=== PATIENT | male | born 1965 | race Caucasian/White ===

== ENCOUNTER 2016-07-28 18:03 | Emergency (ER) | payer OTHER ==
[~2016-07-28] VITALS: Ht 180.3 cm; Wt 97.5 kg
[~2016-07-28 18:03] MED LIST: 'PARAFON FORTE500 M1 PO; AUGMENTIN 875 M1 TAB PO; AUGMENTIN 875875 MG PO; BACTRIM DS 8001 TA1 PO; CIPRODEX 0.3%-7.5 ML OT; HYDROCODONE BIT1 T11 PO; INDOCIN25 MG; KEFLEX500 MG PO; LAMICTAL CD5 MG PO; MIRTAZAPINE30 MG PO; MOTRIN800 MG PO; NAPROSYN500 MG PO; NORCO 325 MG-51 TAB PO; OMNICEF300 MG PO; SIMVASTATIN20 MG PO; TRAMADOL HCL50 MG PO; VICODIN 500 MG-1 TAB PO
[2016-07-28 18:06] VITALS: BP 153/104
[2016-07-28] MEDS ORDERED: HYDROCODONE BIT1 T11 PO (19:23)
== END 2016-07-28 18:18 | disposition home or self-care (01) ==
LOC: ED 18:03
DX: S62.396A Other fracture of fifth metacarpal bone, right hand, initial encounter for closed fracture (principal); Z90.89 Acquired absence of other organs; Z88.5 Allergy status to narcotic agent; W22.8XXA Striking against or struck by other objects, initial encounter; Y93.89 Activity, other specified; Y92.89 Other specified places as the place of occurrence of the external cause; Y99.9 Unspecified external cause status

== ENCOUNTER → 2016-08-13 | Outpatient (CLI) | payer OTHER | END | disposition home or self-care (01) | LOC: ORTHO 00:41 | DX: S62.306D Unspecified fracture of fifth metacarpal bone, right hand, subsequent encounter for fracture with routine healing (principal); X58.XXXD Exposure to other specified factors, subsequent encounter ==

== ENCOUNTER 2017-09-09 17:32 | Emergency (ER) | payer OTHER ==
[~2017-09-09] VITALS: Ht 180.3 cm; Wt 113.4 kg
[2017-09-09 17:32] VITALS: BP 138/94
[2017-09-09] MEDS ORDERED: NAPROSYN500 MG PO (17:56)
[2017-09-09] MEDS ORDERED: KEFLEX500 M1 PO (17:56)
== END 2017-09-09 19:22 | disposition home or self-care (01) ==
LOC: ED 17:32
DX: S60.453A Superficial foreign body of left middle finger, initial encounter (principal); R03.0 Elevated blood-pressure reading, without diagnosis of hypertension; Z90.89 Acquired absence of other organs; Z88.5 Allergy status to narcotic agent; X58.XXXA Exposure to other specified factors, initial encounter; Y93.89 Activity, other specified; Y92.89 Other specified places as the place of occurrence of the external cause; Y99.9 Unspecified external cause status

== ENCOUNTER 2018-04-10 11:06 | Inpatient (IN) | payer OTHER ==
[2018-04-10] VITALS (16 sets, daily range): BP systolic 103–156; BP diastolic 61–97
[~2018-04-10] VITALS: Ht 180.3 cm; Wt 96.7 kg
--- NOTE | ~2018-04-10 | EKG ---
[place], [place] ELECTROCARDIOGRAM REPORT NAME: SHERRIE GARCIA JR UNIT #: [id number] ROOM: 416 DOCTOR: LUZ MARIA DRAFT REPORT BIRTHDATE: [birth year] [facility] Test Date: 2018-04-10 Test Time: 11:08:27 Pat Name: SHERRIE GARCIA Department: Room: 416 Gender: M Immunology Specialist: Nova Kelly : 1965 Requested By: PRATEEK MCCURDY Order Number: [id number] Reading MD: Pino Soliz MD Measurements Intervals [place] Rate: 133 P: [place]: QRS: 52 QRSD: 137 T: -79 QT: 349 QTc: 520 Interpretive Statements Atrial flutter with 2:1 AV block IVCD, consider atypical RBBB Abnormal T, consider ischemia, diffuse leads ST elevation, consider anterior injury No previous ECG available for comparison Electronically Signed On 04-12-2018 8:19:36 PST by Pino Soliz MD CM:EKGRPT:ELECTROCARDIOGRAM REPORT [id number] PRATEEK LOERA DRAFT REPORT PRATEEK MCCURDY M.D.
--- NOTE | ~2018-04-10 | PR ---
[place], [place] PROGRESS NOTE [id number] UNIT #: [id number] ROOM: 416 DOCTOR: MICHELE HODGES MD BIRTHDATE: [birth year] DOS: 04/13/2018 SUBJECTIVE: The patient was admitted with atrial flutter with rapid ventricular rate and he is on a beta aniyah and the heart rate is under much better control. He has no palpitations, breathing difficulty, chest pain or dizziness. He walked around without any symptoms. The patient is anticoagulated as well now. PHYSICAL EXAMINATION: GENERAL: The patient is pleasant, alert, oriented. He is very comfortable. He is not tachypneic. Not dizzy. VITAL SIGNS: Temperature is normal, pulse is 104 irregular, blood pressure 117/85. NECK: Normal JVP. RESPIRATORY: Breath sounds are diminished. Some crackles because of the patient's COPD as well as smoking. HEART: Monitor shows atrial flutter with a heart rate around 100-110 beats per minute. IMPRESSION: 1. Newly diagnosed atrial flutter. 2. There is no evidence of cardiac decompensation. 3. Smoking. 4. Chronic obstructive pulmonary disease. RECOMMENDATIONS: The patient was to have electrical cardioversion done today and because of scheduling conflict it could not be done. The patient has electrical ARTHUR and electrical cardioversion scheduled for tomorrow and the patient can be discharged home and the procedures will be done as an outpatient. The patient should go home on anticoagulation as well as current dose of beta aniyah. MICHELE HODGES MD CM:PNTRANS [id number] MICHELE HODGES MD 04/24/18 1023 interface
--- NOTE | ~2018-04-10 | CON ---
[place], [place] REPORT OF CONSULTATION NAME: SHERRIE GARCIA JR UNIT #: [id number] ROOM: 415 DOCTOR: IDALMIS MARIEZULEYKA BIRTHDATE: [birth year] DOS: 04/11/2018 REASON FOR ADMISSION: New onset atrial flutter. HISTORY OF PRESENT ILLNESS: The patient is a 52-year-old gentleman, brought from the [place], evaluation of an EKG showing new onset atrial fibrillation. The patient was significantly diaphoretic and dizzy spells and was in rapid ventricular response also. The patient was started on Cardizem drip. The patient's family sees Dr. Soliz, hence Dr. Soliz was consulted. Echocardiogram has been ordered. He denies any chest discomfort. Rate is well-controlled on a Cardizem drip at 10 mcg. No history of previous cardiac issues. The patient is a smoker. The patient also has history of hypertension. Right now, he denies any angina. Cardiac enzymes have all been negative. PAST MEDICAL HISTORY: Hypertension, tobacco abuse. PAST SURGICAL HISTORY: Hernia repair and vasectomy. SOCIAL HISTORY: He consumes alcohol occasionally. He uses marijuana and currently smokes 1 pack per day of cigarettes. FAMILY HISTORY: Atrial fibrillation in the mother. ALLERGIES: CODEINE. HOME MEDICATIONS: Simvastatin, amitriptyline and Lamictal. REVIEW OF SYSTEMS: CONSTITUTIONAL: No fever, no chills. HEENT: No visual disturbance or hearing problems. CARDIOVASCULAR: As per HPI. RESPIRATORY: Complains of coughing and shortness of breath. GASTROINTESTINAL: No nausea, no vomiting. GENITOURINARY: No dysuria. PHYSICAL EXAMINATION: VITAL SIGNS: Blood pressure is 120/70, heart rate is controlled on 10 mcg of Cardizem. HEENT: Unremarkable. NECK: Supple, no JVD. LUNGS: Diminished breath sounds. HEART: Sounds are irregularly irregular. ABDOMEN: Soft, nontender. NEUROLOGICAL: Stable. EKG shows atrial flutter with variable rate. LABORATORY DATA: Sodium 140, potassium 4.5, creatinine is 0.9. Troponins have all been negative. INR is 1. Hemoglobin 16.5, hematocrit 49.9. Chest x-ray is normal. IMPRESSION: [place], [place] REPORT OF CONSULTATION NAME: SHERRIE GARCIA JR UNIT #: [id number] ROOM: [facility] DOCTOR: ZULEYKA RAYGOZA MD BIRTHDATE: [birth year] 1. New onset of atrial flutter. 2. History of mild hypertension. 3. Tachyarrhythmia. 4. History of tobacco abuse and marijuana abuse. RECOMMENDATIONS: As ordered. Start the patient on beta blockers and anticoagulation with Eliquis. I will review the echocardiogram. If the patient does not convert, probably consideration should be given for either a ARTHUR cardioversion or start the patient on amiodarone drip. SOL score is not significantly elevated, except for tobacco and mild hypertension. Importance of tobacco cessation and marijuana cessation discussed with the patient in detail and we will closely follow up with you. Thank you for this interesting consultation. ZULEYKA RAYGOZA MD CM:CONSTR:REPORT OF CONSULTATION 0739 04/11/18 1142 interface
--- NOTE | ~2018-04-10 | EKG ---
[place], [place] ELECTROCARDIOGRAM REPORT NAME: SHERRIE GARCIA JR UNIT #: [id number] ROOM: 416 DOCTOR: LUZ MARIA DRAFT REPORT BIRTHDATE: [birth year] [facility] Test Date: 2018-04-10 Test Time: 16:04:27 Pat Name: SHERRIE GARCIA Department: Room: 416 Gender: M Fuel Manager: Nova Kelly : 1965 Requested By: PRATEEK MCCURDY Order Number: [id number] Reading MD: Pino Soliz MD Measurements Intervals [place] Rate: 128 P: [place]: QRS: 46 QRSD: 142 T: -84 QT: 347 QTc: 507 Interpretive Statements Atrial fibrillation IVCD, consider atypical RBBB No previous ECG available for comparison Electronically Signed On 04-12-2018 8:19:51 PST by Pino Soliz MD CM:EKGRPT:ELECTROCARDIOGRAM REPORT [id number] 0819 PRATEEK LOERA DRAFT REPORT PRATEEK MCCURDY M.D.
--- NOTE | ~2018-04-10 | PR ---
[place], [place] PROGRESS NOTE NAME: SHERRIE GARCIA JR [facility] #: [id number] UNIT #: [id number] ROOM: 416 DOCTOR: MICHELE HODGES MD BIRTHDATE: [birth year] DOS: 04/12/2018 SUBJECTIVE: This patient was seen by Dr. Hilton on my behalf. The patient's diagnosis was atrial flutter with rapid ventricular rate. He had been on Cardizem drip and now is on metoprolol tartrate 50 mg b.i.d. He had some lightheaded and dizzy spells many times since September of last year and no obvious reason was identified. He had gone to his physician [place] [facility] and found his heart rate to be fast and irregular, and he was sent to the Emergency Department due to a classic atrial flutter with rapid ventricular rate, was diagnosed, the rate is now slower. He does not have any chest pain or breathing difficulty, palpitations, no loss of consciousness, and no neurological symptoms. MEDICATIONS: Currently, he is on amitriptyline 100 mg at bedtime, apixaban 5 mg b.i.d. which was started yesterday, atorvastatin 40 daily, Lamictal 200 mg at night, metoprolol tartrate 50 mg b.i.d., and nicotine patch 21 mg daily. PHYSICAL EXAMINATION: GENERAL: The patient is very pleasant, alert, comfortable. VITAL SIGNS: Pulse is irregular at 112 beats per minute, blood pressure 110/76. NECK: JVP is normal. No bruit in the neck. HEART: There is no cardiomegaly. Murmurs are present. EXTREMITIES: There is no edema of the lower extremity. RESPIRATORY: Breath sounds are mildly diminished with some adventitious sounds. LABORATORY DATA: Monitor shows atrial flutter with somewhat fast heart rate. IMPRESSION: 1. This patient has persistent atrial flutter. The patient's lightheaded and dizzy spells may be due to a rapid ventricular rate. 2. There is no evidence of cardiac decompensation. RECOMMENDATIONS: I think the best approach is to perform a transesophageal echocardiogram and if no thrombus is identified in the left atrium and left atrial appendage then attempt electrical cardioversion. I suspect this patient has either persistent or on and off atrial flutter and therefore anti-arrhythmic drug will be started if no thrombus is identified in the left ventricle. I discussed the procedure with him and pointed out the risks and the benefits. [place], [place] PROGRESS NOTE NAME: GARCIA JRSHERRIE Antonina UNIT #: [id number] ROOM: [facility] DOCTOR: MICHELE HODGES MD BIRTHDATE: [birth year] MICHELE HODGES MD CM:PNTRANS [id number] MICHELE HODGES MD 04/13/18 0239 interface
--- NOTE | ~2018-04-10 | EKG ---
[place], [place] ELECTROCARDIOGRAM REPORT NAME: SHERRIE GARCIA JR UNIT #: [id number] ROOM: 416 DOCTOR: LUZ MARIA DRAFT REPORT BIRTHDATE: [birth year] [facility] Test Date: 2018-04-10 Test Time: 13:48:36 Pat Name: SHERRIE GARCIA Department: Room: 416 Gender: M Steel Erector: Nova Kelly : 1965 Requested By: PRATEEK MCCURDY Order Number: [id number] Reading MD: Pino Soliz MD Measurements Intervals [place] Rate: 132 P: [place]: QRS: 58 QRSD: 131 T: -69 QT: 333 QTc: 494 Interpretive Statements Atrial flutter IVCD, consider atypical RBBB Nonspecific T abnormalities, lateral leads Borderline ST elevation, anterior leads No previous ECG available for comparison Electronically Signed On 04-12-2018 8:19:43 PST by Pino Soliz MD CM:EKGRPT:ELECTROCARDIOGRAM REPORT [id number] 0819 PRATEEK LOERA DRAFT REPORT PRATEEK MCCURDY M.D.
[~2018-04-10 11:06] MED LIST changes: +KEFLEX500 M1 PO
[2018-04-10 11:23] LABS: BASO # 0.1 10*3/uL (0.0-0.1); EOS # 0.2 10*3/uL (0.0-0.4); EOS % 1.3 % (1.0-4.0); HEMATOCRIT 49.9 % (42.0-52.0); HEMOGLOBIN 16.5 g/dl (14.0-18.0); LYMPH # 2.5 10*3/uL (1.3-4.4); LYMPH % 20.6 % (27.0-41.0); MEAN CELL VOLUME 91.6 fl (80.0-94.0); MEAN CORPUSCULAR HGB 30.3 pg (27.0-31.0); MEAN CORPUSCULAR HGB CONC 33.1 g/dl (33.0-37.0); MEAN PLATELET VOLUME 10.6 fl (9.6-12.3); MONO # 0.8 10*3/uL (0.1-1.0); MONO % 6.3 % (3.0-9.0); NEUT # 8.4 10*3/uL (2.3-7.9); NEUT % 69.7 % (47.0-73.0); PLATELET COUNT AUTOMATED 172 10*3/uL (130-400); RED BLOOD COUNT 5.45 10*6/uL (4.50-5.90); RED CELL DISTRI WIDTH 13.1 % (0-14.5)
[2018-04-10 11:34] LABS: ACT PARTIAL THROMBO TIME 24.7 SECONDS (20.8-31.5)
[2018-04-10 11:39] LABS: ALBUMIN 3.9 gm/dl (3.1-4.5); ALKALINE PHOSPHATASE 87 U/L (45-117); BUN 11 mg/dl (7-24); CHLORIDE 106 mmol/L (98-107); CREATININE 0.99 mg/dL (0.70-1.30); POTASSIUM 4.5 mmol/L (3.5-5.1); SGOT/AST 24 IU/L (3-35); SGPT/ALT 39 U/L (12-78); SODIUM 140 mmol/L (136-145); TOTAL PROTEIN 8.3 gm/dL (6.4-8.2)
[2018-04-10 11:43] LABS: TROPONIN I < 0.015 ng/ml (<0.045)
[2018-04-10 13:24] LABS: BILIRUBIN NEGATIVE (NEGATIVE); BLOOD NEGATIVE (NEGATIVE); CLARITY CLEAR (CLEAR); COLOR YELLOW (YELLOW); GLUCOSE NEGATIVE (NEGATIVE); KETONE NEGATIVE (NEGATIVE); LEUKO ESTERASE TRACE (NEGATIVE); NITRITE NEGATIVE (NEGATIVE); PH 7.5 (5.0-9.0); UROBILINOGEN 0.2 E.U./dl (0.2-1.0)
[2018-04-10 13:45] LABS: RBC 0-2 rbc/hpf (0-2)
[2018-04-10] MEDS ORDERED: AMITRIPTYLINE100 M1 PO (18:56)
[2018-04-11] VITALS: BP 134/79
[2018-04-11 06:07] LABS: ALBUMIN 3.7 gm/dl (3.1-4.5); ALKALINE PHOSPHATASE 89 U/L (45-117); BUN 11 mg/dl (7-24); CHLORIDE 104 mmol/L (98-107); CHOLESTEROL 171 mg/dL (<200); CREATININE 0.93 mg/dL (0.70-1.30); FREE T4 0.89 ng/dl (0.76-1.46); HDL CHOLESTEROL 25 mg/dl (40-60); POTASSIUM 4.2 mmol/L (3.5-5.1); SGOT/AST 23 IU/L (3-35); SGPT/ALT 36 U/L (12-78); SODIUM 140 mmol/L (136-145); TOTAL PROTEIN 7.7 gm/dL (6.4-8.2); TRIGLYCERIDES 411 mg/dl (<150)
[2018-04-11 06:19] LABS: BASO # 0.1 10*3/uL (0.0-0.1); EOS # 0.1 10*3/uL (0.0-0.4); EOS % 1.1 % (1.0-4.0); HEMATOCRIT 49.4 % (42.0-52.0); HEMOGLOBIN 16.3 g/dl (14.0-18.0); LYMPH # 1.7 10*3/uL (1.3-4.4); LYMPH % 19.3 % (27.0-41.0); MEAN CELL VOLUME 92.7 fl (80.0-94.0); MEAN CORPUSCULAR HGB 30.6 pg (27.0-31.0); MEAN PLATELET VOLUME 10.9 fl (9.6-12.3); MONO # 0.6 10*3/uL (0.1-1.0); NEUT # 6.2 10*3/uL (2.3-7.9); NEUT % 70.4 % (47.0-73.0); PLATELET COUNT AUTOMATED 157 10*3/uL (130-400); RED BLOOD COUNT 5.33 10*6/uL (4.50-5.90); RED CELL DISTRI WIDTH 13.3 % (0-14.5); WHITE BLOOD COUNT 8.8 10*3/uL (4.8-10.8)
[2018-04-11 07:37] LABS: VITAMIN D, 25-HYDROXY 11.1 ng/mL (30-100)
[2018-04-11 08:00] VITALS: BP 123/62; BP 142/78
[2018-04-11 12:00] VITALS: BP 117/71
[2018-04-11 16:00] VITALS: BP 123/71
[2018-04-11] MEDS ORDERED: LAMICTAL200 MG PO (18:05)
[2018-04-11 20:00] VITALS: BP 104/82
[2018-04-12] VITALS: BP 113/73
[2018-04-12 05:56] LABS: BUN 15 mg/dl (7-24); CHLORIDE 105 mmol/L (98-107); CREATININE 1.04 mg/dL (0.70-1.30); POTASSIUM 4.2 mmol/L (3.5-5.1); SODIUM 139 mmol/L (136-145)
[2018-04-12 06:03] LABS: BASO # 0.1 10*3/uL (0.0-0.1); BASO % 1.1 % (0.0-1.0); EOS # 0.1 10*3/uL (0.0-0.4); EOS % 1.2 % (1.0-4.0); HEMATOCRIT 49.2 % (42.0-52.0); HEMOGLOBIN 16.2 g/dl (14.0-18.0); LYMPH # 1.9 10*3/uL (1.3-4.4); MEAN CELL VOLUME 92.7 fl (80.0-94.0); MEAN CORPUSCULAR HGB 30.5 pg (27.0-31.0); MEAN CORPUSCULAR HGB CONC 32.9 g/dl (33.0-37.0); MONO % 11.9 % (3.0-9.0); NEUT # 5.1 10*3/uL (2.3-7.9); NEUT % 61.6 % (47.0-73.0); PLATELET COUNT AUTOMATED 157 10*3/uL (130-400); RED BLOOD COUNT 5.31 10*6/uL (4.50-5.90); RED CELL DISTRI WIDTH 13.3 % (0-14.5); WHITE BLOOD COUNT 8.2 10*3/uL (4.8-10.8)
[2018-04-12 08:00] VITALS: BP 118/72
[2018-04-12 12:00] VITALS: BP 110/76
[2018-04-12 16:00] VITALS: BP 130/78
[2018-04-12 20:00] VITALS: BP 117/85
[2018-04-13] VITALS: BP 95/63
[2018-04-13 06:11] LABS: BASO # 0.1 10*3/uL (0.0-0.1); BASO % 0.6 % (0.0-1.0); EOS # 0.1 10*3/uL (0.0-0.4); EOS % 1.8 % (1.0-4.0); HEMATOCRIT 48.6 % (42.0-52.0); HEMOGLOBIN 16.1 g/dl (14.0-18.0); LYMPH # 2.1 10*3/uL (1.3-4.4); LYMPH % 26.5 % (27.0-41.0); MEAN CELL VOLUME 92.2 fl (80.0-94.0); MEAN CORPUSCULAR HGB 30.6 pg (27.0-31.0); MEAN CORPUSCULAR HGB CONC 33.1 g/dl (33.0-37.0); MEAN PLATELET VOLUME 10.9 fl (9.6-12.3); MONO # 1.1 10*3/uL (0.1-1.0); MONO % 13.8 % (3.0-9.0); NEUT # 4.4 10*3/uL (2.3-7.9); NEUT % 56.1 % (47.0-73.0); PLATELET COUNT AUTOMATED 144 10*3/uL (130-400); RED BLOOD COUNT 5.27 10*6/uL (4.50-5.90); RED CELL DISTRI WIDTH 13.2 % (0-14.5); WHITE BLOOD COUNT 7.8 10*3/uL (4.8-10.8)
[2018-04-13 06:17] LABS: BUN 17 mg/dl (7-24); CHLORIDE 104 mmol/L (98-107); CREATININE 1.02 mg/dL (0.70-1.30); POTASSIUM 4.2 mmol/L (3.5-5.1); SODIUM 138 mmol/L (136-145)
[2018-04-13 08:41] VITALS: BP 110/72
[2018-04-13] MEDS ORDERED: ELIQUIS5 M1 PO (11:19)
[2018-04-13] MEDS ORDERED: METOPROLOL TART50 M1 PO (11:19)
[2018-04-13] MEDS ORDERED: VITAMIN D5000 UNI1 PO (11:19)
[2018-04-13] MEDS ORDERED: ATORVASTATIN CA40 M1 PO (11:19)
== END 2018-04-13 12:05 | disposition home or self-care (01) | DRG 309 ==
LOC: ED 11:06 → EDHOLD 16:36 → 4E 16:36 → 5E 17:55 → EDHOLD 17:55 → 5E 17:55 → 4E 18:10
PROVIDERS: Emergency Medicine; Internal Medicine Nephrology; ADMIT Internal Medicine
DX: I48.91 Unspecified atrial fibrillation (principal); R65.10 Systemic inflammatory response syndrome (SIRS) of non-infectious origin without acute organ dysfunction; E11.65 Type 2 diabetes mellitus with hyperglycemia; I10 Essential (primary) hypertension; E78.5 Hyperlipidemia, unspecified; F17.210 Nicotine dependence, cigarettes, uncomplicated; E83.41 Hypermagnesemia; E66.09 Other obesity due to excess calories; M17.0 Bilateral primary osteoarthritis of knee; I48.92 Unspecified atrial flutter; J44.9 Chronic obstructive pulmonary disease, unspecified; Z71.6 Tobacco abuse counseling; Z88.6 Allergy status to analgesic agent; Z79.899 Other long term (current) drug therapy; Z98.52 Vasectomy status; Z82.49 Family history of ischemic heart disease and other diseases of the circulatory system; Z68.29 Body mass index [BMI] 29.0-29.9, adult